=== PATIENT | female | born 1960 | race Caucasian/White ===

== ENCOUNTER 2018-02-13 06:22 | Inpatient (IN) | payer BC ==
[2018-01-26 14:53] VITALS: BMI 37.0
--- NOTE | 2018-01-26 16:02 | DIAGNOSTIC IMAGING REPORT ---
CHEST 2 VIEWS ROUTINE HISTORY: 57 years-old Female PAT preoperative exam. No acute chest complaints COMPARISON: None available TECHNIQUE: PA and lateral views of the chest FINDINGS: The cardiomediastinal and hilar silhouettes are within normal limits. Linear subsegmental lingular opacities suggest atelectasis or scarring. No pneumothorax, pleural effusion, focal airspace consolidation or overt pulmonary edema. Bones of the chest appear grossly intact. Multilevel endplate spurring about the spine. IMPRESSION: No acute process. The above report was generated using voice recognition software. It may contain grammatical, syntax or spelling errors. Electronically signed by: Tommy Hudson M.D. 01/26/2018 4:01 PM Dictated Date/Time: 01/26/2018 4:00 PM
[2018-01-26 16:14] LABS: BASO % 0.2 %; BASO ABS # 0.02 K/uL (0-0.2); EOS % 6.8 %; HEMATOCRIT 40.2 % (37-47); HEMOGLOBIN 13.7 g/dL (12.0-16.0); IG# 0.03 K/uL (0.00-0.02); LYMPH % 28.2 %; LYMPH ABS # 2.48 K/uL (1.2-3.4); MEAN CELL VOLUME 91.8 fL (80-100); MEAN CORPUSCULAR HEMOGLOBIN 31.3 pg (25-34); MEAN CORPUSCULAR HGB CONC 34.1 g/dl (32-36); MEAN PLATELET VOLUME 10.7 fL (7.4-10.4); MONO % 11.4 %; NEUT % 53.1 %; NEUT ABS # 4.65 K/uL (1.4-6.5); PLATELET COUNT 269 K/uL (130-400); RED CELL DISTRIBUTION WIDTH CV 13.3 % (11.5-14.5); RED CELL DISTRIBUTION WIDTH SD 44.5 fL (36.4-46.3); WHITE BLOOD COUNT 8.78 K/uL (4.8-10.8)
[2018-01-26 16:21] LABS: PTT PATIENT 23.8 SECONDS (21.0-31.0)
[2018-01-26 16:31] LABS: ALBUMIN 3.9 gm/dl (3.4-5.0); CALCIUM 9.5 mg/dl (8.5-10.1); CREATININE 1.07 mg/dl (0.60-1.20); POTASSIUM 3.9 mmol/L (3.5-5.1)
[2018-01-27 06:09] LABS: HEMOGLOBIN A1C 6.4 % (4.5-5.6)
--- NOTE | 2018-02-10 12:48 | HISTORY & PHYSICAL EXAMINATION ---
DATE OF ADMISSION: 02/13/2018 CHIEF COMPLAINT: Left hip pain. HISTORY OF PRESENT ILLNESS: The patient is a 57-year-old female with known osteoarthritis about her left hip. She takes meloxicam daily for pain. She continues to have pain and disability with activities of daily living. She has pain with prolonged weightbearing and standing activities. She has difficulty with any kneeling, bending, or squatting activities. Due to ongoing pain and disability, she now desires to proceed with left total hip arthroplasty. PAST MEDICAL HISTORY: Low back pain, borderline glaucoma, depression, hypertension, osteoarthritis, type 2 diabetes, hyperlipidemia, gout. PAST SURGICAL HISTORY: Lumbar spine surgery, tubal ligation, ovarian cystectomy, oral surgery, tonsillectomy, shoulder arthroscopy, knee arthroscopy, colonoscopy. MEDICATIONS: Atorvastatin 20 mg daily, fluticasone nasal spray 2 sprays each nostril daily, Januvia 100 mg daily, latanoprost 0.005% eyedrops 1 drop each eye daily, lisinopril/HCTZ 20-25 daily, loratadine 10 mg daily, meloxicam 15 mg daily, metformin ER 500 mg 2 tablets daily, venlafaxine ER 150 mg daily, vitamin D3 5000 units daily. ALLERGIES: SEASONAL. SOCIAL HISTORY AND REVIEW OF SYSTEMS: Noncontributory. PHYSICAL EXAMINATION: GENERAL: Well-nourished, well-developed elderly female, who appears her stated age. HEENT: Normocephalic, atraumatic. Extraocular movements intact, oropharynx pink and moist. NECK: Supple without adenopathy. LUNGS: Clear to auscultation bilaterally. HEART: Regular rate and rhythm. ABDOMEN: Soft, nontender, nondistended. EXTREMITIES: The upper extremities are within normal limits. The left hip demonstrates limited range of motion. There is limitation of active and passive internal/external rotation with pain at end range. X-RAYS: X-rays were reviewed. She has [id number] arthritis of the left hip with complete loss of the joint space. There are osteophytes about the femoral head and acetabulum. ASSESSMENT: Left hip degenerative joint disease. PLAN: Risks versus benefits were discussed, consent was obtained. The patient's primary care physician is Dr. Hester. Will proceed with left total hip arthroplasty as indicated.
[~2018-02-13] VITALS: Ht 160 cm; Wt 95.8 kg
[2018-02-13] VITALS (9 sets, daily range): BP systolic 109–142; BP diastolic 68–86; PULSE 64–83; TEMP 36.3–36.6; O2SAT 91–99; Ht 160 cm; Wt 95.8 kg
[~2018-02-13 06:22] MED LIST: ACET-1311 PO; ACETAMINOPHEN 500 MG TAB PO SCH; ATOR-22 PO; CEFAZOLIN 2000MG IV PUSH 15 ML IV SCH; CHOL2000 PO; CeleBREX 200 MG CAP PO SCH; DEXAMETHASONE 4 MG TAB PO SCH; FAMOTIDINE 20 MG TAB PO SCH; FLUT0.15 INTNAS; GABAPENTIN 600 MG PO SCH; GLC/500 PO; LACTATED RINGER'S 1000ML 1,000 ML IV SCH; LACTATED RINGER'S 1000ML 500 ML IV SCH; LATA0.5S OP; LISI-788 PO; MELO7.5T5 PO; METOCLOPRAMIDE HCL 10 MG TAB PO SCH; ROPIVACAINE 5MG/ML 30 ML 150 MG, BUPIVACAINE 0.5% MPF INJ 30 ML, EpINEphrine HCL INJ 0.... INFIL SCH; SITA100T3 PO; TRMCR515 TOP; VENL225T27 PO
[2018-02-13] MEDS: TRANEXAMIC ACID INJ 1,000 MG x 2 Bags IV SCH ×4 (06:30→07:56)
--- NOTE | 2018-02-13 07:09 | History & Physical Bridge Note ---
H&P Re-Evaluation Bridge Note: I have examined the patient, reviewed the History & Physical and in the interval since the performance of the History & Physical I have noted the following changes of clinical significance: No changes noted
[2018-02-13] MEDS ORDERED: ORTHO JOINT ANESTHETIC ONE (07:13)
[2018-02-13] MEDS ORDERED: POVIDONE-IODINE OP SOLN 30 ML BTL ONE (07:13)
[2018-02-13] MEDS ORDERED: BACITRACIN 50000 UNIT VIAL ONE (07:13)
[2018-02-13] MEDS ORDERED: BUPIVACAINE 0.5 % 5 MG/1 ML PF 10ML VIAL ONE ×2 (07:21→07:56)
[2018-02-13] MEDS ORDERED: FENTANYL CITRATE INJ 50 MCG/1 ML 2 ML VIAL ONE (07:40)
[2018-02-13] MEDS ORDERED: MIDAZOLAM HCL 1 MG/ML 2ML VIAL ONE ×2 (07:41→08:24)
[2018-02-13] MEDS ORDERED: PHENYLEPHRINE 100MCG/ML 5ML SYR IV PRN (08:30)
[2018-02-13] MEDS ORDERED: ONDANSETRON INJ 2 MG/ML 2 ML VIAL IV PRN ×2 (08:30→10:00)
[2018-02-13] MEDS ORDERED: EpHEDrine SULFATE INJ 50 MG/ML AMP IV PRN (08:30)
[2018-02-13] MEDS ORDERED: ATROPINE SULFATE 0.1 MG/ML 5ML SYR IV PRN (08:30)
[2018-02-13] MEDS ORDERED: HYDROmorphone INJ 2 MG/ML SYR/VIAL IV PRN (08:30)
[2018-02-13] MEDS ORDERED: PROPOFOL IV EMULSION 10 MG/ML 20 ML VIAL ONE (08:31)
[2018-02-13] MEDS ORDERED: BISACODYL 10 MG SUPP PR PRN (10:00)
[2018-02-13] MEDS ORDERED: ALUMINUM/MAGNESIUM/SIMETH (MAALOX MAX) 30 ML UDC PO PRN (10:00)
[2018-02-13] MEDS ORDERED: ZOLPIDEM TARTRATE 5 MG TAB PO PRN (10:00)
[2018-02-13] MEDS ORDERED: SOD PHOSPHATE/SOD BIPHOSPHATE ENEMA 132 ML BTL PR PRN (10:00)
[2018-02-13] MEDS ORDERED: MAGNESIUM HYDROXIDE SUSP 30 ML UDC PO PRN (10:00)
[2018-02-13] MEDS ORDERED: TRIAMCINOLONE ACET 0.5% CR 15 GM TUBE EXT PRN (10:00)
[2018-02-13] MEDS ORDERED: CEFAZOLIN IV 2,000 MG in DEXTROSE 5% 50ML 50 ML IV SCH (10:00)
--- NOTE | 2018-02-13 10:17 | DIAGNOSTIC IMAGING REPORT ---
PORTABLE LEFT HIP 2 VIEWS CLINICAL HISTORY: Postop study. COMPARISON STUDY: No previous studies for comparison. FINDINGS: There are postsurgical changes of a total left hip arthroplasty. Femoral and temporal components appear well seated. There is a small corticated density projected adjacent to the inferior aspect of the ischium. There are no acute fractures or dislocations. Overlying surgical drains are evident. IMPRESSION: Postsurgical changes of a total left hip arthroplasty. Electronically signed by: Clifford Beach M.D. 02/13/2018 10:15 AM Dictated Date/Time: 02/13/2018 10:14 AM
--- NOTE | 2018-02-13 11:17 | Anesthesiology Progress Note ---
Anesthesia Post Op Note Date & Time February 13, 2018 at 11:16 Vital Signs Pain Intensity: 0.0 Vital Signs Past 12 Hours Date Time Temp Pulse Resp B/P (MAP) Pulse Ox O2 Delivery O2 Flow Rate FiO2 02/13/18 11:00 36.4 67 15 117/81 (93) 99 Nasal Cannula 2.0 02/13/18 10:30 36.4 64 16 109/75 (86) 94 Nasal Cannula 2.0 02/13/18 10:30 Nasal Cannula 2.0 02/13/18 10:30 Nasal Cannula 2.0 02/13/18 10:20 36.6 117/74 02/13/18 10:20 77 14 02/13/18 10:17 79 15 99 02/13/18 10:17 78 15 02/13/18 10:15 119/71 02/13/18 10:12 82 15 02/13/18 10:12 81 15 100 02/13/18 10:11 104/77 02/13/18 10:07 76 16 02/13/18 10:07 73 16 100 02/13/18 10:06 77 14 02/13/18 10:06 80 14 99 02/13/18 10:05 123/77 02/13/18 10:01 88 16 99 02/13/18 10:01 88 16 02/13/18 10:00 124/82 02/13/18 09:56 83 16 02/13/18 09:56 82 16 100 02/13/18 09:55 118/78 02/13/18 09:51 86 15 02/13/18 09:51 86 15 100 02/13/18 09:50 84 13 02/13/18 09:50 83 13 110/75 100 02/13/18 09:50 84 13 02/13/18 09:50 83 13 110/75 100 02/13/18 09:45 89 14 02/13/18 09:45 89 14 101/73 100 02/13/18 09:45 89 14 02/13/18 09:45 89 14 101/73 100 02/13/18 09:42 124/79 02/13/18 09:42 124/79 02/13/18 09:35 36.3 86 16 124/79 97 Nasal Cannula 3 02/13/18 06:59 36.4 77 20 142/86 94 Room Air Notes Mental Status: alert / awake / arousable, participated in evaluation Pt Amnestic to Procedure: Yes Nausea / Vomiting: adequately controlled Pain: adequately controlled Airway Patency, RR, SpO2: stable & adequate BP & HR: stable & adequate Hydration State: stable & adequate Anesthetic Complications: no major complications apparent
[2018-02-13] MEDS: SODIUM CHLORIDE 0.9% 1000ML 1,000 ML IV SCH ×2 (12:20→20:54)
[2018-02-13] MEDS: KETOROLAC TROMETHAMINE 30 MG/ML VIAL IV. SCH ×3 (12:20→23:36)
--- NOTE | 2018-02-13 12:45 | OPERATIVE REPORT ---
DATE OF OPERATION: 02/13/2018 PREOPERATIVE DIAGNOSIS: Osteoarthritis, left hip. POSTOPERATIVE DIAGNOSIS: Osteoarthritis, left hip. PROCEDURE: Left Bibi total hip arthroplasty. SURGEON: Dr. Bravo. BIOCHEMIST: HERMELINDO Hobbs ANESTHESIA: Spinal. COMPLICATIONS: None. IMPLANTS USED: Acetabular reamer used 50, acetabular shell 50, femoral stem 3, femoral head -2.5 x 36, ceramic. DESCRIPTION OF PROCEDURE: Following induction of adequate spinal anesthesia, the patient was placed in right lateral decubitus position and left Sonia-Langenbeck incision was made. Subcutaneous tissue was sharply dissected. Electrocautery used for hemostasis. The fascia was incised throughout the length of the wound and a rucker scissor placed beneath the short external rotators. The pyriformis was tagged with #1 Vicryl. The short external rotators were divided from the posterior aspect of the femur using electrocautery. These were swept posteriorly. A T-capsulotomy incision was made and the hip was dislocated using a combination of flexion, adduction, and internal rotation. Exposure of the femoral neck with old-style Hohmann and a blunt Hohmann was carried out and a femoral rasp was utilized as a guide for making the appropriate level femoral neck cut. This bone fragment was removed and reserved on the back table. Next, attention was turned to the acetabulum where bone hook was used to retract the femur while the offset retractors were placed anterior and posteriorly. A double-angled Hohmann was placed in superior and anterior position exposing the acetabulum nicely. Acetabular labrum as well as posterior capsule elements were removed using a long knife and a long pickup. Fovea centralis was cleared of all soft tissue. Sequential reamings were carried up to a 50 and decision was made to proceed with impaction of a 50 trabecular metal cup. This was impacted and held using a single 35 mm bone screw. The acetabular liner was placed with 15 of elevated posterior wall in the superior and posterior position. Next, attention was turned to the femoral portion of the case where a Bovie and pickup was used to further clear short external rotators from their insertion on the femur. Box osteotome was used to gain access to the femoral canal and the T-handled rasp and a rattail rasp were used to further open and lateral the canal. Sequentially raspings were carried up to a 3 which gave good fit and fill of the proximal femur. A trial reduction was carried out and a 132 degree femoral neck component was chosen as the size to be used. A -2.5 x 36 mm femoral head was impacted into position, +0 head was utilized. The trial reduction was stable in all degrees of rotation with no [id number] impingement. The hip was dislocated. The trial components were removed and the final femoral stem, neck, and femoral head combination were assembled on the back table and impacted into position. Hip was relocated. Range of motion checked once again successful and the wound was irrigated. The pyriformis repaired to the greater trochanter using #1 Vicryl [id number] suture. A Hemovac drain was placed and the fascia was closed using #1 Vicryl, subcutaneous tissue was closed using 0 Dexon, and skin was closed with jamir. Sterile dressing of Adaptic, 4 x 4's, ABDs, and foam tape was applied. The patient tolerated the procedure well. Due to the complex nature of the procedure, the entire surgery was performed with the operational assistance of Francisca Moraes PA-C. The insurance underwriting assistant, under direct supervision, was involved in the actual performance of all aspects of the surgical procedure including hemostasis, tissue retraction and incision, instrument management, patient positioning, and wound closure. I attest to the content of the Intraoperative Record and any orders documented therein. Any exceptions are noted below. FIGUEROA
[2018-02-13] MEDS: ACETAMINOPHEN 500 MG TAB PO SCH ×2 (13:37→21:06)
[2018-02-13] MEDS: CEFAZOLIN IV 2,000 MG in SYRINGE 0 ML IV SCH ×2 (16:27→23:35)
[2018-02-13] MEDS: FLUTICASONE PROPIONATE NA SPR 16 GM BTL NAE SCH (20:49)
[2018-02-13] MEDS: ASPIRIN 81 MG ECTAB PO SCH (20:50)
[2018-02-13] MEDS: SENNA 8.6 MG TAB PO SCH (20:51)
[2018-02-13] MEDS: SITAGLIPTIN 100 MG TAB PO SCH (20:51)
[2018-02-13] MEDS: LATANOPROST 0.005% OP SOLN 2.5 ML BTL OP SCH (21:05)
[2018-02-13] MEDS ORDERED: GLUCOSE 10 TABS/TUBE PO PRN (21:15)
[2018-02-13] MEDS ORDERED: PHARMACY GLYCEMIC MGMT CONSULT PRN (21:15)
[2018-02-13] MEDS ORDERED: GLUCOSE 40% GEL 15 GM TUBE PO PRN (21:15)
[2018-02-13] MEDS ORDERED: DEXTROSE 50% 50 ML SYR IV PRN (21:15)
[2018-02-13] MEDS ORDERED: GLUCAGON FOR INJ 1 MG VIAL IM PRN (21:15)
[2018-02-13] MEDS ORDERED: CARBOHYDRATES FOR HYPOGLYCEMIA PO PRN (21:15)
[2018-02-13] MEDS: INSULIN ASPART 100 UNITS/ML 3 ML PEN SC SCH ×2 (21:24→23:56)
[2018-02-14 03:12] VITALS: BP 116/70; PULSE 64; TEMP 36.6; O2SAT 95
[2018-02-14] MEDS: OXYCODONE HCL IR 5 MG TAB (IMMEDIATE RELEASE) PO PRN ×3 (03:19→16:24)
[2018-02-14] MEDS: INSULIN ASPART 100 UNITS/ML 3 ML PEN SC SCH ×5 (03:50→21:56)
[2018-02-14] MEDS: KETOROLAC TROMETHAMINE 30 MG/ML VIAL IV. SCH (05:51)
[2018-02-14] MEDS: ACETAMINOPHEN 500 MG TAB PO SCH ×3 (05:52→21:54)
[2018-02-14] MEDS: SODIUM CHLORIDE 0.9% 1000ML 1,000 ML IV SCH (05:58)
[2018-02-14 06:08] LABS: BASO % 0.1 %; BASO ABS # 0.01 K/uL (0-0.2); EOS % 0.1 %; EOS ABS # 0.01 K/uL (0-0.5); HEMATOCRIT 30.7 % (37-47); HEMOGLOBIN 10.6 g/dL (12.0-16.0); IG# 0.03 K/uL (0.00-0.02); LYMPH % 9.8 %; LYMPH ABS # 1.41 K/uL (1.2-3.4); MEAN CELL VOLUME 88.5 fL (80-100); MEAN CORPUSCULAR HEMOGLOBIN 30.5 pg (25-34); MEAN CORPUSCULAR HGB CONC 34.5 g/dl (32-36); MEAN PLATELET VOLUME 10.3 fL (7.4-10.4); MONO % 7.5 %; MONO ABS # 1.08 K/uL (0.11-0.59); NEUT % 82.3 %; NEUT ABS # 11.82 K/uL (1.4-6.5); PLATELET COUNT 227 K/uL (130-400); RED CELL DISTRIBUTION WIDTH CV 13.1 % (11.5-14.5); RED CELL DISTRIBUTION WIDTH SD 42.4 fL (36.4-46.3); WHITE BLOOD COUNT 14.36 K/uL (4.8-10.8)
[2018-02-14 06:39] LABS: CALCIUM 8.2 mg/dl (8.5-10.1); CREATININE 1.35 mg/dl (0.60-1.20); POTASSIUM 3.7 mmol/L (3.5-5.1)
[2018-02-14] MEDS ORDERED: DEXAMETHASONE 4 MG TAB PO ONE (07:30)
[2018-02-14 08:03] VITALS: BP 110/70; PULSE 61; TEMP 36.7; O2SAT 93
--- NOTE | 2018-02-14 08:11 | Orthopedic Progress Note ---
Orthopedic Progress Note Date of Service February 14, 2018. Subjective Post OP Day: 1 Reports: feeling well, Denies: chest pain, SOB, nausea / vomiting, light headedness, calf pain Additional Notes: Mild pain around the incision with getting in and out of bed. Otherwise, pain is controlled. Objective calves soft nontender, N/V intact, hip located, dressing C/D/I, A&O x3, toes mobile Date Time Temp Pulse Resp B/P (MAP) Pulse Ox O2 Delivery O2 Flow Rate FiO2 02/14/18 08:03 36.7 61 22 110/70 (83) 93 Room Air 02/14/18 07:15 Room Air 02/14/18 03:12 36.6 64 18 116/70 (85) 95 Room Air 02/13/18 23:35 Room Air 02/13/18 22:56 36.5 70 17 123/68 (86) 97 Room Air 02/13/18 18:41 36.6 70 18 122/77 (92) 91 Room Air 02/13/18 15:42 Nasal Cannula 2.0 02/13/18 15:31 36.5 81 18 127/80 (96) 96 Nasal Cannula 2.0 02/13/18 13:28 36.3 83 16 121/82 (95) 97 Nasal Cannula 2.0 02/13/18 12:24 36.6 80 16 115/79 (91) 98 Nasal Cannula 2.0 02/13/18 11:27 36.5 73 16 115/80 (92) 99 Nasal Cannula 2.0 02/13/18 11:00 36.4 67 15 117/81 (93) 99 Nasal Cannula 2.0 02/13/18 10:30 36.4 64 16 109/75 (86) 94 Nasal Cannula 2.0 02/13/18 10:30 Nasal Cannula 2.0 02/13/18 10:30 Nasal Cannula 2.0 02/13/18 10:20 36.6 117/74 02/13/18 10:20 77 14 02/13/18 10:17 79 15 99 02/13/18 10:17 78 15 02/13/18 10:15 119/71 02/13/18 10:12 82 15 02/13/18 10:12 81 15 100 02/13/18 10:11 104/77 02/13/18 10:07 76 16 02/13/18 10:07 73 16 100 02/13/18 10:06 77 14 02/13/18 10:06 80 14 99 02/13/18 10:05 123/77 02/13/18 10:01 88 16 99 02/13/18 10:01 88 16 02/13/18 10:00 124/82 02/13/18 09:56 83 16 02/13/18 09:56 82 16 100 02/13/18 09:55 118/78 02/13/18 09:51 86 15 02/13/18 09:51 86 15 100 02/13/18 09:50 84 13 02/13/18 09:50 83 13 110/75 100 02/13/18 09:50 84 13 02/13/18 09:50 83 13 110/75 100 02/13/18 09:45 89 14 02/13/18 09:45 89 14 101/73 100 02/13/18 09:45 89 14 02/13/18 09:45 89 14 101/73 100 02/13/18 09:42 124/79 02/13/18 09:42 124/79 02/13/18 09:35 36.3 86 16 124/79 97 Nasal Cannula 3 Laboratory Results 24 Hours: Test 02/14/18 05:32 White Blood Count 14.36 K/uL Red Blood Count 3.47 M/uL Hemoglobin 10.6 g/dL Hematocrit 30.7 % Mean Corpuscular Volume 88.5 fL Mean Corpuscular Hemoglobin 30.5 pg Mean Corpuscular Hemoglobin Concent 34.5 g/dl Platelet Count 227 K/uL Mean Platelet Volume 10.3 fL Neutrophils (%) (Auto) 82.3 % Lymphocytes (%) (Auto) 9.8 % Monocytes (%) (Auto) 7.5 % Eosinophils (%) (Auto) 0.1 % Basophils (%) (Auto) 0.1 % Neutrophils # (Auto) 11.82 K/uL Lymphocytes # (Auto) 1.41 K/uL Monocytes # (Auto) 1.08 K/uL Eosinophils # (Auto) 0.01 K/uL Basophils # (Auto) 0.01 K/uL Assessment & Plan Assessment: POD 1 s/p Left ARTI Plan: PT/OT Plan for HH PT upon DC Inhouse Planning Pain Management: Celebrex, PO Tylenol, Oxy IR DVT Prophylaxis: TEDs, SCDs, ASA Discharge Planning Discharge Planning: home with home health
[2018-02-14] MEDS: ASPIRIN 81 MG ECTAB PO SCH ×2 (08:24→21:52)
[2018-02-14] MEDS: ATORVASTATIN 20 MG TAB PO SCH (08:25)
[2018-02-14] MEDS: MULTIVITAMIN TAB PO SCH (08:25)
--- NOTE | 2018-02-14 08:25 | Pharmacy Progress Note ---
Glycemic Control Intl Consult Date of Service February 14, 2018. Scope Glycemic Pharmacist consulted by Dr Duran on 02/13/18 for glycemic control and to write orders per [facility] inpatient glycemic control protocol Objective Weight (Kilograms): 95.800 Accuchecks BSG (last 24hrs): Test 02/13/18 09:45 02/13/18 11:12 02/13/18 16:46 02/13/18 20:41 Bedside Glucose 147 mg/dl (70-90) 145 mg/dl (70-90) 200 mg/dl (70-90) 254 mg/dl (70-90) Test 02/13/18 23:47 02/14/18 03:48 02/14/18 05:32 Bedside Glucose 232 mg/dl (70-90) 150 mg/dl (70-90) Random Glucose 136 mg/dl (70-99) Laboratory Data (last 24hrs) Test 02/14/18 05:32 Anion Gap 9.0 mmol/L BUN/Creatinine Ratio 22.1 Blood Urea Nitrogen 30 mg/dl Creatinine 1.35 mg/dl Potassium Level 3.7 mmol/L Sodium Level 139 mmol/L White Blood Count 14.36 K/uL Red Blood Count 3.47 M/uL Hemoglobin 10.6 g/dL Hematocrit 30.7 % Mean Corpuscular Volume 88.5 fL Mean Corpuscular Hemoglobin 30.5 pg Mean Corpuscular Hemoglobin Concent 34.5 g/dl Platelet Count 227 K/uL Mean Platelet Volume 10.3 fL Neutrophils (%) (Auto) 82.3 % Lymphocytes (%) (Auto) 9.8 % Monocytes (%) (Auto) 7.5 % Eosinophils (%) (Auto) 0.1 % Basophils (%) (Auto) 0.1 % Neutrophils # (Auto) 11.82 K/uL Lymphocytes # (Auto) 1.41 K/uL Monocytes # (Auto) 1.08 K/uL Eosinophils # (Auto) 0.01 K/uL Basophils # (Auto) 0.01 K/uL HbA1c Test 01/26/18 14:32 Hemoglobin A1c 6.4 % (4.5-5.6) H Recent Pertinent Medications Outpatient Anti-diabetic Regimen: * metformin 500 mg PO BID + Januvia 100 mg PO daily * A1c = 6.4 % 01/26/18 Risk Factors for Insulin Resistance: * Steroids: ortho mix + dex 8 mg PO preop, dex 8 mg PO on POD #1 am * Recent Surgery: POD #1 s/p L-ARTI * Diet: T2DM Assessment & Plan ASSESSMENT: * 57 yr old T2DM male s/p left ARTI. * Patient is well controlled as an outpatient on metformin + Januvia * Will hold oral agents for admission and utilize SQ basal bolus insulin regimen which is the recommended regimen for inpatient glycemic control, especially in the setting of steroid induced hyperglycemia. * A dose of basal insulin will be given this am to assist in coverage of dexamethasone * Tighten bolus insulin parameters to weight/stress 3 while on dexamethasone * Metformin will be resumed with evidence of oral intake and baseline kidney function PLAN FOR INPATIENT GLYCEMIC CONTROL: * Holding outpatient oral diabetes medications * Basal insulin * LANTUS 18 units SQ this am * LANTUS 0-16 units SQ with dinner (0 units < 140, 9 units 140-180, 16 units > 180) * Anticipate discontinuation of Lantus on 02/15 * Correctional Insulin * NOVOLOG per scale ACHS or Q6hrs while NPO * Goal Range: Low 110 mg/dL - High 140 mg/dL * Correction Factor: 15 mg/dL/unit * Nutritional / Prandial insulin per carb ratio of 1 unit per 6 grams CHO consumed DISCHARGE RECOMMENDATIONS: * Adequate outpatient control evidenced by A1c of 6.4% * Continue current outpatient regimen of metformin + Januvia on discharge Thank you.
[2018-02-14] MEDS: LISINOPRIL/HCTZ 20/25MG TAB PO SCH (08:26)
[2018-02-14] MEDS ORDERED: LANTUS PER UNIT CHARGE SQ SCH ×2 (09:00→17:45)
--- NOTE | 2018-02-14 10:25 | Anesthesiology Progress Note ---
Anesthesia Post Op Note Date & Time February 14, 2018 at 10:25 Vital Signs Pain Intensity: 1.0 Vital Signs Past 12 Hours Date Time Temp Pulse Resp B/P (MAP) Pulse Ox O2 Delivery O2 Flow Rate FiO2 02/14/18 08:03 36.7 61 22 110/70 (83) 93 Room Air 02/14/18 07:15 Room Air 02/14/18 03:12 36.6 64 18 116/70 (85) 95 Room Air 02/13/18 23:35 Room Air 02/13/18 22:56 36.5 70 17 123/68 (86) 97 Room Air Notes Mental Status: alert / awake / arousable, participated in evaluation Pt Amnestic to Procedure: Yes Nausea / Vomiting: adequately controlled Pain: adequately controlled Airway Patency, RR, SpO2: stable & adequate BP & HR: stable & adequate Hydration State: stable & adequate Anesthetic Complications: no major complications apparent
[2018-02-14 11:34] VITALS: BP 122/80; PULSE 63; TEMP 36.5; O2SAT 94
--- NOTE | 2018-02-14 12:07 | Clinical Documentation Query ---
CLINICAL DOCUMENTATION QUERY Dr. SIFUENTES, In your clinical opinion is this patient being managed for: ( ) Acute blood loss anemia ( ) Not Agree ( ) Other explanation of clinical findings (Please Explain. If no explanation given, this would be considered a no response.) ( ) Unable to determine ( ) Need to Discuss (Please call CDS via extension or qliq. If no interaction occurs this is considered a no response.) The medical record reflects the following clinical findings, treatment, and risk factors. Clinical Indicators: 57 yo female presenting with OA L hip for a L THR. Baseline Hgb 13.7/Hct 40.2 which has trended down to 10.6/30.7. EBL of 150 cc with an additional 100 cc via hemovac. Treatment: monitor CBC, IV fluids Risk Factors: surgical blood loss Please clarify and document your clinical opinion in the progress notes and discharge summary. Terms such as "probable", "suspected", "likely", "questionable", "possible", or "still to be ruled out" are acceptable. IF IN AGREEMENT, YOU MUST DOCUMENT ABOVE DIAGNOSTIC STATEMENT IN DAILY PROGRESS NOTES AND DISCHARGE SUMMARY. This document is not part of the patient's record. Thank You, Emy Haji, SHELLEY [phone]
--- NOTE | 2018-02-14 12:09 | Clinical Documentation Query ---
CLINICAL DOCUMENTATION QUERY Dr. BROWN, In your clinical opinion is this patient being managed for: (x ) Acute blood loss anemia ( ) Not Agree ( ) Other explanation of clinical findings (Please Explain. If no explanation given, this would be considered a no response.) ( ) Unable to determine ( ) Need to Discuss (Please call CDS via extension or qliq. If no interaction occurs this is considered a no response.) The medical record reflects the following clinical findings, treatment, and risk factors. Clinical Indicators: 57 yo female presenting with OA L hip for a L THR. Baseline Hgb 13.7/Hct 40.2 which has trended down to 10.6/30.7. EBL of 150 cc with an additional 100 cc via hemovac. Treatment: monitor CBC, IV fluids Risk Factors: surgical blood loss Please clarify and document your clinical opinion in the progress notes and discharge summary. Terms such as "probable", "suspected", "likely", "questionable", "possible", or "still to be ruled out" are acceptable. IF IN AGREEMENT, YOU MUST DOCUMENT ABOVE DIAGNOSTIC STATEMENT IN DAILY PROGRESS NOTES AND DISCHARGE SUMMARY. This document is not part of the patient's record. Thank You, Emy Haji, SHELLEY [phone]
[2018-02-14 15:04] VITALS: BP 131/74; PULSE 61; PULSE 62; TEMP 36.4; O2SAT 92
[2018-02-14] MEDS: FLUTICASONE PROPIONATE NA SPR 16 GM BTL NAE SCH (21:52)
[2018-02-14] MEDS: LATANOPROST 0.005% OP SOLN 2.5 ML BTL OP SCH (21:53)
[2018-02-14] MEDS: SITAGLIPTIN 100 MG TAB PO SCH (21:53)
[2018-02-14] MEDS: CeleBREX 200 MG CAP PO SCH (21:53)
[2018-02-14] MEDS: SENNA 8.6 MG TAB PO SCH (21:54)
[2018-02-14 23:04] VITALS: BP 112/69; PULSE 57; TEMP 36.4; O2SAT 94
[2018-02-15] MEDS ORDERED: INSULIN ASPART 100 UNITS/ML 3 ML PEN SC SCH (02:00)
[2018-02-15] MEDS: ACETAMINOPHEN 500 MG TAB PO SCH ×2 (05:38→13:23)
[2018-02-15 06:09] VITALS: BP 128/78; PULSE 61; TEMP 36.4; O2SAT 99
--- NOTE | 2018-02-15 07:17 | Orthopedic Progress Note ---
Orthopedic Progress Note Date of Service February 15, 2018. Subjective Post OP Day: 2 Reports: feeling well, Denies: complaints Objective calves soft nontender, N/V intact, hip located, incision C/D/I, A&O x3, toes mobile Mild drainage noted at drain site. Date Time Temp Pulse Resp B/P (MAP) Pulse Ox O2 Delivery O2 Flow Rate FiO2 02/15/18 06:09 36.4 61 16 128/78 (95) 99 Room Air 02/15/18 00:20 Room Air 02/14/18 23:04 36.4 57 16 112/69 (83) 94 Room Air 02/14/18 16:20 Room Air 02/14/18 15:04 36.4 62 16 131/74 (93) 92 Room Air 61 02/14/18 11:34 36.5 63 20 122/80 (94) 94 Room Air 02/14/18 08:03 36.7 61 22 110/70 (83) 93 Room Air Assessment & Plan Assessment: POD 2 s/p Left ARTI Plan: PT/OT Plan for HH PT upon DC Plan for dc to home today Inhouse Planning Pain Management: Celebrex, PO Tylenol, Oxy IR DVT Prophylaxis: TEDs, SCDs, ASA Discharge Planning Discharge Planning: home with home health
[2018-02-15] MEDS ORDERED: RXC5 PO (07:21)
[2018-02-15] MEDS ORDERED: ACET-24 PO (07:21)
[2018-02-15] MEDS ORDERED: CLB200 PO (07:21)
[2018-02-15] MEDS ORDERED: SENN-61 PO (07:21)
[2018-02-15] MEDS ORDERED: ASPI-320 PO (07:21)
--- NOTE | 2018-02-15 07:24 | Discharge Instructions ---
Discharge Instructions Date of Service February 15, 2018. Admission Reason for Admission: Left Hip Osteoarthritis Discharge Discharge Diagnosis / Problem: Left Hip Djd Discharge Goals Goal(s): Decrease discomfort, Improve function, Increase independence Activity Recommendations Activity Limitations: per Instructions/Follow-up section Weightbearing Status: Left weightbearing (as tolerated) . Instructions / Follow-Up Instructions / Follow-Up ACTIVITY RECOMMENDATIONS: SELF CARE INSTRUCTIONS AFTER TOTAL HIP REPLACEMENT Until the incision and soft tissues around your hip have healed, there is a possibility that the hip prosthesis could dislocate. A. Observe the following precautions to prevent dislocation: 1. Don't bend your hip greater than 90 degrees. 2. Avoid crossing your legs or ankles while standing or lying. 3. Sit with your feet placed 6 inches apart. 4. When sitting, keep your knees below your hips. Sit on a firm surface, avoid deep, soft chairs and couches. Use an elevated toilet seat in the bathroom. 5. Don't bend over at the waist. Use a long handled shoehorn and a sock aid to help you put on your shoes and socks. A sales agent can help you curing pickling packer objects that are too high or too low to reach. 6. Keep car riding to a minimum for at least one month after surgery. B. Your balance may be shaky for a while. Use crutches or a walker until directed by your doctor. C. Use hand rails when walking on stairs. D. Wear low heeled shoes with non-slip soles. E. Be sure that your floors are free of things that could trip you - throw rugs , electrical cords, small objects. Avoid wet and waxed floors, especially with crutches and canes. F. Try to walk several times a day with rest periods between. G. Continue with all the exercises taught to you in the hospital. Again, make walking a part of your daily routine. SPECIAL CARE INSTRUCTIONS: VERY IMPORTANT TO READ AND REVIEW A. You may still be at risk for phlebitis and blood clots. 1. Wear surgical stockings (GUTIERREZ hose) for 2 weeks after surgery to improve circulation and reduce swelling. 2. Take Aspirin 81mg twice daily for 4 weeks or as directed by your doctor. This is your blood thinner. 3. High risk patients may be prescribed a stronger blood thinner if necessary. 4. If you are on Coumadin normally, your family doctor/regional administrative assistant should monitor your blood work. Expect a phone call the day of or the day after bloodwork is drawn to adjust your dosage. B. You must take antibiotics before having dental work, bladder, bowel and other surgery. Your doctor will provide you with a permanent card to carry describing precautions. C. Call [facility] if you have a fever, redness or swelling around the incision, cloudy drainage from incision, or sudden increase in pain in your hip, not relieved by your regular pain medication. D. Please call the office at if you have any concerns or questions about your operation or recovery. * YOU MAY SHOWER, NO TUB BATHS UNTIL CLEARED BY YOUR DOCTOR. * WEAR GUTIERREZ HOSE 20 HOURS PER DAY FOR 2 WEEKS. * YOU SHOULD USE A WALKER OR CRUTCHES FOR 2-4 WEEKS. THIS WILL HELP PREVENT STRAIN ON YOUR HIP MUSCLE AND ALLOW IT TO HEAL PROPERLY. YOU MAY WEAN TO A CANE TOLERATED. * MOST PATIENTS WILL HAVE HOME NURSING FOR THERAPY. IF YOU DECIDE TO DO OUTPATIENT PHYSICAL THERAPY, PLEASE SCHEDULE THIS 3 TIMES PER WEEK. * You have a Zipline Closure System. As noted below, this keeps your incision closed. Change the dressing daily. Keep the wound covered with a dressing as it has the potential to snag on your clothing. The Zipline will remain on for a total of 2 weeks. Do not remove it! You may shower with this on. Do not soak it; no tub baths. You will be given instructions by nursing staff at the time of discharge to care for your Zip Closure System. This devices uses plastic straps to keep your incision closed and protected throughout your recovery. If you have any questions please refer to these instructions first. . FOLLOW UP VISIT: If appointment is not already scheduled: Please call [facility] to make a follow-up appointment for 2 weeks after your surgery at . Current Hospital Diet Patient's current hospital diet: Diabetes Type 2 Diet Discharge Diet Recommended Diet: Diabetes Type 2 Diet Procedures Procedures Performed: Left Total Hip Arthroplasty, Uncemented Pending Studies Studies pending at discharge: no Laboratory Results Hemoglobin A1c Test 01/26/18 14:32 Range/Units Estimated Average Glucose 137 mg/dl Hemoglobin A1c 6.4 H 4.5-5.6 % Medical Emergencies . Who to Call and When: Medical Emergencies: If at any time you feel your situation is an emergency, please call 911 immediately. . Non-Emergent Contact Non-Emergency issues call your: Surgeon Call Non-Emergent contact if: temperature is above 101.5, your pain is not controlled, your pain is worsening, wound has increased drainage, wound has increased redness . "Provider Documentation" section prepared by Davidson Gusman. . [place] Drug Monitoring Program Search Results: patient reviewed within database, no issues identified
[2018-02-15] MEDS: MULTIVITAMIN TAB PO SCH (07:26)
[2018-02-15] MEDS: CeleBREX 200 MG CAP PO SCH (07:27)
[2018-02-15] MEDS: ASPIRIN 81 MG ECTAB PO SCH (07:27)
[2018-02-15] MEDS: ATORVASTATIN 20 MG TAB PO SCH (07:27)
[2018-02-15] MEDS: LISINOPRIL/HCTZ 20/25MG TAB PO SCH (07:28)
[2018-02-15] MEDS: INSULIN ASPART 100 UNITS/ML 3 ML PEN SC SCH ×2 (07:34→12:00)
[2018-02-15] MEDS ORDERED: METFORMIN HCL 500 MG TAB PO SCH (08:30)
[2018-02-15 12:56] VITALS: BP 128/78; PULSE 61; TEMP 36.4; O2SAT 99
== END 2018-02-15 14:11 | disposition home health service (06) | DRG 470 ==
LOC: C.ACU 06:22 → C.3E 09:53 → ENRESERV 10:05
PROC: 0SRB03Z Replacement of Left Hip Joint with Ceramic Synthetic Substitute, Open Approach (ICD-10-PCS; principal; 2018-02-13 08:00)
DX: M16.12 Unilateral primary osteoarthritis, left hip (principal); E11.9 Type 2 diabetes mellitus without complications; I10 Essential (primary) hypertension; E78.5 Hyperlipidemia, unspecified; F32.9 Major depressive disorder, single episode, unspecified; H40.9 Unspecified glaucoma; J30.2 Other seasonal allergic rhinitis; Z79.899 Other long term (current) drug therapy; Z79.1 Long term (current) use of non-steroidal anti-inflammatories (NSAID); Z79.84 Long term (current) use of oral hypoglycemic drugs